=== PATIENT | male | born 1960 | race Caucasian/White ===

== ENCOUNTER 2016-10-04 08:31 | Emergency (ER) | payer MEDICARE, OTHER ==
[2016-10-04 09:44] LABS: HEMOGLOBIN 13.8 gm/dl (14.0-17.5); RED BLOOD COUNT 4.7 M/UL (4.20-5.50); WHITE BLOOD COUNT 5.2 K/UL (4.5-11.0)
[2016-10-04 10:03] LABS: BUN/CREATININE RATIO 14 (0-10)
== END 2016-10-04 13:00 | disposition home or self-care (01) ==
LOC: ER1 08:31
PROVIDERS: Emergency Medicine
DX: R51 Headache (principal); Z86.718 Personal history of other venous thrombosis and embolism
CPT/HCPCS: 36415; 70450; 80053; 81001; 85025; 85610; 85730; 87040; 96361; 96372; 96374; 96375; 99284; J1200; J1885; J2405; J2765; J3030

== ENCOUNTER → 2016-10-14 | Outpatient (CLI) | payer MEDICARE, OTHER | LOC: US 08:30 | DX: R94.5 Abnormal results of liver function studies (principal); K76.0 Fatty (change of) liver, not elsewhere classified | CPT/HCPCS: 76705 ==

== ENCOUNTER → 2020-08-15 | Outpatient (CLI) | payer MEDICARE, OTHER ==
[~2020-08-15] MED LIST: B-121000 MC2 SL; DEXILANT60 MG PO; ELIQUIS2.5 MG PO; FOLIC ACID 1 MG1 MG PO; PRAVACHOL20 MG PO; TRIGLIDE160 MG PO; VITAMIN D35000 UNI1 PO; ZANTAC150 MG PO
== END ==
LOC: EXRD 12:49
DX: R60.0 Localized edema (principal); M79.606 Pain in leg, unspecified; M79.89 Other specified soft tissue disorders; R93.6 Abnormal findings on diagnostic imaging of limbs
CPT/HCPCS: 93971

== ENCOUNTER → 2021-11-24 | Outpatient (CLI) | payer MEDICARE | LOC: KOH-I 11:00 | DX: R10.9 Unspecified abdominal pain (principal); N20.0 Calculus of kidney | CPT/HCPCS: 74176 ==

== ENCOUNTER → 2021-11-24 | Outpatient (CLI) | payer MEDICARE ==
[2021-11-24 13:12] LABS: HEMOGLOBIN 14.5 gm/dl (14.0-17.5); RED BLOOD COUNT 4.89 M/UL (4.20-5.50); WHITE BLOOD COUNT 6.3 K/UL (4.5-11.0)
[2021-11-24 13:32] LABS: BUN/CREATININE RATIO 16 (0-10)
== END ==
LOC: LAB 12:41
PROVIDERS: Nurse Practitioner Family
DX: N20.0 Calculus of kidney (principal); R31.9 Hematuria, unspecified; R10.9 Unspecified abdominal pain
CPT/HCPCS: 36415; 80053; 85025

== ENCOUNTER → 2021-12-10 | Outpatient (CLI) | payer MEDICARE | LOC: ECHO 08:30 | DX: Z01.818 Encounter for other preprocedural examination (principal); R06.02 Shortness of breath | CPT/HCPCS: ECHO; 93306 ==